=== PATIENT | male | born 1940 | race Caucasian/White ===

== ENCOUNTER 2024-02-11 09:38 | Emergency (ER) | payer MEDICARE, SELFPAY ==
--- NOTE | ~2024-02-11 | XR_ITS ---
EXAMINATION: XR foot LT min 3V DATE: 02/11/2024 10:30 INDICATION: Left foot pain swelling. TECHNIQUE: 4 views of left foot were obtained. COMPARISON: None. FINDINGS: Bone alignment normal. No fracture. There is mild osteoarthritis of first metatarsophalange al joint and some of the midfoot joints and interphalangeal joints. There are dystrophic calcificatio ns around first metatarsophalangeal joint. There are enthesophytes at the posterior and plantar aspec ts of calcaneal tuberosity. IMPRESSION: 1. Polyarticular osteoarthritis. Reviewed, dictated and finalized at location E.
--- NOTE | ~2024-02-11 | XR_ITS ---
EXAMINATION: XR ankle LT min 3V DATE: 02/11/2024 10:29 INDICATION: Left ankle pain and swelling. TECHNIQUE: 4 views of left ankle were obtained. COMPARISON: None. FINDINGS: Bone alignment is normal. No fracture. There is chronic heterotopic ossification distal to medial malleolus. There is an osteochondral lesion of medial talar dome. There is mild midfoot osteoa rthritis. There are enthesophytes at the posterior and plantar aspects of calcaneal tuberosity. IMPRESSION: 1. Polyarticular osteoarthritis including an osteochondral lesion of medial talar dome. Reviewed, dictated and finalized at location E. IMPRESSION: 1. Polyarticular osteoarthritis including an osteochondral lesion of medial francisco ar dome.
[2024-02-11 10:04] VITALS: BP 95/65; PULSE 79; RESP 14; TEMP 36.6; O2SAT 99
--- NOTE | 2024-02-11 11:16 | ED.GENADULT ---
HPI - General Adult General Chief complaint: Extremity Injury, Lower Stated complaint: Left Foot Injury Source: patient Mode of arrival: ambulatory Limitations: no limitations History of Present Illness HPI narrative: Patient presents for evaluation of left ankle and foot pain and swelling. He indicates he stepped in a hole last week and twisted his left ankle in the process. He did not fall to the ground. He rates pain currently as 3/10 in severity, and describes it as pain . Weight-bearing and ambulating makes his pain worse. He has not taken any medication to assist with the symptoms. Related Data Home Medications Medication Instructions Recorded Confirmed atorvastatin 40 mg tablet mg 02/11/24 furosemide 40 mg tablet mg 02/11/24 lisinopril 5 mg tablet mg 02/11/24 metoprolol tartrate 25 mg tablet mg 02/11/24 potassium chloride 20 mEq meq PO 02/11/24 tablet,extended release(part/cryst) (Klor-Con M) Allergies Allergy/AdvReac Type Severity Reaction Status Date / Time No Known Allergies Allergy Verified 02/11/24 10:04 Review of Systems Review of Systems: CONSTITUTIONAL: Denies fever, chills, or sweats. EYES: Denies visual changes, redness, or discharge. ENT: Denies rhinorrhea, congestion, sore throat, or otalgia. CARDIOVASCULAR: Denies chest pain, palpitations, or edema. RESPIRATORY: Denies cough or dyspnea. GASTROINTESTINAL: Denies abdominal pain, nausea, vomiting, or diarrhea. GENITOURINARY: Denies dysuria or hematuria. SKIN: Denies rash or itching. MUSCULOSKELETAL: Reports left ankle/foot pain and swelling NEUROLOGIC: Denies headache, numbness, dizziness, or weakness. PSYCHIATRIC: Denies anxiety or depression. [facility] Past Medical History Medical History Ankle sprain Congestive heart failure Hyperlipidemia Surgical History Surgical History History of shoulder replacement Family History Family History Mother Family history non-contributory Social History Social History Smoking status: Never smoker Substance use: never Gender identity (if verbalized by the patient): Male Sexual Orientation (if Verbalized by the Patient): Straight or Heterosexual Spiritual care concerns: No Exam Narrative: GENERAL: Well-appearing, well-nourished, and in no acute distress. HEAD: Normocephalic, atraumatic. EYES: PERRLA and EOMI. ENT: Nares clear, no rhinorrhea or epistaxis. Mucous membranes moist. Oropharynx without tonsillar hypertrophy exudate or other lesions. Bilateral TMs pearly caputo nonbulging NECK: Supple. No adenopathy or masses. No carotid bruits or JVD CHEST: Clear to auscultation. No respiratory distress. No wheezes rales or rhonchi HEART: Regular rate and rhythm. No murmur heard. Normal peripheral pulses. ABDOMEN: Soft, nontender, nondistended, normal active bowel sounds. EXTREMITIES: There is swelling noted to the left foot and left ankle. There is tenderness over the dorsal lateral aspect of the left foot and over the lateral aspect of left ankle. Able to dorsi and plantarflex the left foot. Circumference of each calf is 36cm. No tenderness in posterior calf. No redness or warmth SKIN: Warm, dry, no rash. NEURO: No focal deficits. Alert and oriented x3. PSYCH: Normal mood and affect. Course Course Emergency Course: This is an 83-year-old male who presented for evaluation of left ankle/foot pain and swelling. X rays negative for fracture. Exam is consistent with sprain. Advised on RICE therapy. Will dc with [facility]. Opted not to use NSAIDs as I am not sure what his renal function is given his age and diuretic use. He has no posterior calf tenderness, redness or warmth to suggest DVT. Follow-up with primary provider. Go to
== END 2024-02-11 11:08 | disposition home or self-care (01) ==
PROVIDERS: Emergency Provider Nurse Practitioner; PCP Family Medicine
DX: S93.402A Sprain of unspecified ligament of left ankle, initial encounter (principal); X50.9XXA Other and unspecified overexertion or strenuous movements or postures, initial encounter; I50.9 Heart failure, unspecified; E78.5 Hyperlipidemia, unspecified
CPT/HCPCS: 73610; 73630; 99213; G0463